=== PATIENT | female | born 1960 | race Caucasian/White ===

== ENCOUNTER 2017-02-03 23:03 | Emergency (ER) | payer OTHER ==
[~2017-02-03] VITALS: Ht 172.7 cm; Wt 59.0 kg
[2017-02-04 01:12] VITALS: BP 132/83
== END 2017-02-04 01:12 | disposition home or self-care (01) ==
LOC: ED 23:03
DX: M25.572 Pain in left ankle and joints of left foot (principal)
CPT/HCPCS: J1885; J3010; Q0162

== ENCOUNTER 2017-11-04 14:23 | Emergency (ER) | payer OTHER ==
[~2017-11-04] VITALS: Ht 170.2 cm; Wt 61.5 kg
[2017-11-04 15:07] LABS: UA SPECIFIC GRAVITY >=1.030 (1.005-1.035); microscopic required? YES; urine erythrocyte 1+ (NEGATIVE)
[2017-11-04 16:54] VITALS: BP 142/87
== END 2017-11-04 16:54 | disposition home or self-care (01) ==
LOC: ED 14:23
PROVIDERS: Specialist
DX: N39.0 Urinary tract infection, site not specified (principal); Z90.710 Acquired absence of both cervix and uterus; Z88.5 Allergy status to narcotic agent